=== PATIENT | male | born 1955 | race Caucasian/White ===

== ENCOUNTER → 2020-12-04 | Outpatient (CLI) | payer OTHER | LOC: KOH-I 12:05 | DX: R06.02 Shortness of breath (principal); R53.83 Other fatigue | CPT/HCPCS: 71046 ==

== ENCOUNTER → 2020-12-07 | Outpatient (CLI) | payer OTHER | LOC: CT 13:00 | DX: R06.02 Shortness of breath (principal); R53.83 Other fatigue; R91.8 Other nonspecific abnormal finding of lung field | CPT/HCPCS: 71275; Q9967 ==

== ENCOUNTER → 2021-01-12 | Outpatient (CLI) | payer OTHER | LOC: KOH-I 14:15 | DX: R53.83 Other fatigue (principal); R06.02 Shortness of breath | CPT/HCPCS: 71046 ==

== ENCOUNTER → 2021-11-15 | Outpatient (CLI) | payer MEDICARE, OTHER | LOC: HEART 5 10-20 10:00 | DX: R00.2 Palpitations (principal); I49.3 Ventricular premature depolarization; I08.3 Combined rheumatic disorders of mitral, aortic and tricuspid valves | CPT/HCPCS: 93306 ==

== ENCOUNTER → 2021-11-17 | Outpatient (CLI) | payer MEDICARE, OTHER | LOC: KOH-I 12:46 | DX: U09.9 Post COVID-19 condition, unspecified (principal) | CPT/HCPCS: 71046 ==

== ENCOUNTER → 2022-01-19 | Outpatient (CLI) | payer MEDICARE, OTHER | LOC: MRI 14:33 | DX: I10 Essential (primary) hypertension (principal); N40.1 Benign prostatic hyperplasia with lower urinary tract symptoms; M47.22 Other spondylosis with radiculopathy, cervical region; M50.10 Cervical disc disorder with radiculopathy, unspecified cervical region | CPT/HCPCS: 36415; 72156; 82565; A9577 ==

== ENCOUNTER → 2022-05-12 | Outpatient (CLI) | payer MEDICARE, OTHER | LOC: EMI 16:38 | DX: M54.50 Low back pain, unspecified (principal); M81.0 Age-related osteoporosis without current pathological fracture; M51.36 Other intervertebral disc degeneration, lumbar region; M48.061 Spinal stenosis, lumbar region without neurogenic claudication | CPT/HCPCS: 72148 ==

== ENCOUNTER → 2022-05-18 | Outpatient (CLI) | payer MEDICARE, OTHER ==
[2022-05-18 11:04] LABS: HEMOGLOBIN 15.5 gm/dl (14.0-17.5); RED BLOOD COUNT 4.51 M/UL (4.20-5.50); WHITE BLOOD COUNT 8.3 K/UL (4.5-11.0)
[2022-05-18 11:24] LABS: BUN/CREATININE RATIO 12 (0-10)
[2022-05-21 13:08] LABS: CHOLESTEROL, TOTAL 205 mg/dL (100-199); HDL SIZE 8.7 nm (>=9.2); HDL-C 71 mg/dL (>39); HDL-P (TOTAL) 51.3 umol/L (>=30.5); LARGE HDL-P 6.5 umol/L (>=4.8); LARGE VLDL-P 6.1 nmol/L (<=2.7); LDL SIZE 20.5 nm (>20.5); LDL SIZE 20.5 nm (>=20.8); LDL-C 113 mg/dL (0-99); LDL-P 1340 nmol/L (<1000); LP-IR SCORE 74 (<=45); SMALL LDL-P 488 nmol/L (<=527); TRIGLYCERIDES 123 mg/dL (0-149); VLDL SIZE 56.2 nm (<=46.6)
== END ==
LOC: LAB 10:19
PROVIDERS: Emergency Medicine
DX: I10 Essential (primary) hypertension (principal); E78.2 Mixed hyperlipidemia; M85.88 Other specified disorders of bone density and structure, other site; R53.83 Other fatigue; G47.09 Other insomnia; E55.9 Vitamin D deficiency, unspecified; Z86.16 Personal history of COVID-19
CPT/HCPCS: 36415; 80053; 80061; 82306; 83704; 84443; 84550; 85025

== ENCOUNTER → 2022-05-18 | Outpatient (CLI) | payer MEDICARE, OTHER | LOC: EXRD 11:30 | DX: M81.0 Age-related osteoporosis without current pathological fracture (principal); M54.50 Low back pain, unspecified | CPT/HCPCS: 77080 ==